=== PATIENT | male | born 1950 | race Caucasian/White ===

== ENCOUNTER 2017-07-15 15:25 | Emergency (ER) | payer BC ==
[~2017-07-15] VITALS: Ht 160 cm; Wt 72.5 kg
[2017-07-15] MEDS ORDERED: [UNRECOGNIZED DRUG - OTHER] PO (15:45)
[2017-07-15] MEDS ORDERED: ALBU8.5H8 IH (15:45)
[2017-07-15] MEDS ORDERED: BENA5TAB26 PO (15:45)
[2017-07-15] MEDS ORDERED: NAPR375T6 PO (15:45)
[2017-07-15] MEDS ORDERED: IBUPROFEN 600 MG TABLET PO ONE (16:30)
[2017-07-15 17:17] LABS: ADD UA MICROSCOPIC YES; APPEARANCE,URINE TURBID (CLEAR); GLUCOSE, URINE (UA) NEGATIVE (NEGATIVE); KETONES,URINE NEGATIVE (NEGATIVE); LEUKOCYTE ESTERASE ,URINE SMALL (NEGATIVE); OCCULT BLOOD,URINE NEGATIVE (NEGATIVE); PH,URINE 5.5 (5.0-8.0); PROTEIN,URINE NEGATIVE (NEGATIVE)
[2017-07-15 17:25] LABS: AMORPHOUS SEDIMENT,UR Moderate /LPF (None Seen)
[2017-07-15 17:26] LABS: RBC,URINE 0-2 /HPF (0-2)
[2017-07-15 17:27] LABS: SQUAMOUS EPITHELIAL CELL,UR Rare /LPF (None Seen)
[2017-07-15 17:53] VITALS: BP 110/74
[2017-07-15] MEDS ORDERED: LEVOFLOXACIN 500 MG TABLET PO ONE (18:15)
== END 2017-07-15 18:33 | disposition home or self-care (01) ==
LOC: EMS 15:27
DX: N45.1 Epididymitis (principal); I10 Essential (primary) hypertension
CPT/HCPCS: 76870; 87086; 99285